=== PATIENT | female | born 1930 | race African-American/Black ===

== ENCOUNTER 2017-07-15 18:42 | Inpatient (IN) | payer MEDICARE, MEDICAID ==
[~2017-07-15] VITALS: Ht 165.1 cm; Wt 68.0 kg
[~2017-07-15 18:42] MED LIST: ACET-2178; ASPI-986; CHOL400T11; MEMA10TA2 PO; SIMV10TA2; TRAM50TA73
[2017-07-15 23:49] LABS: BASOPHILS % 0.3 % (0.0-2.0); EOSINOPHILS % 2.1 % (0.0-5.0); HEMATOCRIT. 32.9 % (36.0-48.0); HEMOGLOBIN. 11.1 g/dL (12.0-16.0); LYMPHOCYTES % 25.8 % (20.0-50.0); MEAN CORPUSCULAR HEMOGLOBIN 32.5 pg (28.0-32.0); MEAN CORPUSCULAR VOLUME 96.2 fL (81.0-99.0); MEAN PLATELET VOLUME 9.1 fl (7.4-10.4); MONOCYTES % 6.2 % (2.0-8.0); NEUTROPHILS % 65.6 % (40.0-76.0); PLATELET 222 x1000/uL (130-400); RED BLOOD CELL COUNT 3.41 mill/uL (4.2-5.4); RED CELL DISTRIBUTION WIDTH 13.4 % (11.6-14.6)
[2017-07-15 23:57] LABS: PROTHROMBIN TIME 10.8 sec (9.4-11.6)
[2017-07-16] VITALS (10 sets, daily range): BP systolic 105–181; BP diastolic 60–92
[2017-07-16 00:06] LABS: CARBON DIOXIDE 25 mEq/L (21-32); CHLORIDE 110 mEq/L (98-107); TROPONIN I 0.07 ng/mL (0.00-0.04)
[2017-07-16] MEDS ORDERED: ASPIRIN 325MG TABLET GT NR (00:15)
[2017-07-16] MEDS ORDERED: MAGN400C PO (03:38)
[2017-07-16] MEDS ORDERED: CYAN10009 PO (03:38)
[2017-07-16] MEDS ORDERED: ASCO-339 PO (03:38)
[2017-07-16] MEDS ORDERED: MEMA10TA2 PO (03:38)
[2017-07-16] MEDS ORDERED: ASPI-1158 PO (03:38)
[2017-07-16] MEDS ORDERED: ATOR10TA69 PO (03:38)
[2017-07-16] MEDS ORDERED: CHOL100044 PO (03:38)
[2017-07-16] MEDS ORDERED: GALA4SOL PO (03:38)
[2017-07-16] MEDS ORDERED: MELO-106 PO (03:38)
[2017-07-16] MEDS ORDERED: IPRA3AMP9 HHN (08:13)
[2017-07-16] MEDS ORDERED: CLON0.1T PO (08:13)
[2017-07-16] MEDS ORDERED: ONDA4TAB5 PO (08:13)
[2017-07-16] MEDS ORDERED: ASCO500C15 PO (08:13)
[2017-07-16] MEDS ORDERED: TUSSL PO (08:13)
[2017-07-16] MEDS ORDERED: ACET-2178 PO (08:13)
[2017-07-16] MEDS ORDERED: DOCU-138 PO (08:13)
[2017-07-16] MEDS ORDERED: MULTIVITAMIN WITH MINERALS PO (08:15)
[2017-07-16 08:46] LABS: BASOPHILS % 0.4 % (0.0-2.0); EOSINOPHILS % 2.7 % (0.0-5.0); HEMATOCRIT. 31.9 % (36.0-48.0); HEMOGLOBIN. 10.8 g/dL (12.0-16.0); LYMPHOCYTES % 30.9 % (20.0-50.0); MEAN CORPUSCULAR HEMOGLOBIN 32.7 pg (28.0-32.0); MEAN CORPUSCULAR VOLUME 96.3 fL (81.0-99.0); MEAN PLATELET VOLUME 9.3 fl (7.4-10.4); MONOCYTES % 6.8 % (2.0-8.0); NEUTROPHILS % 59.2 % (40.0-76.0); PLATELET 229 x1000/uL (130-400); RED BLOOD CELL COUNT 3.31 mill/uL (4.2-5.4); RED CELL DISTRIBUTION WIDTH 13.4 % (11.6-14.6)
[2017-07-16 08:57] LABS: CARBON DIOXIDE 26 mEq/L (21-32); CHLORIDE 110 mEq/L (98-107)
[2017-07-16] MEDS ORDERED: ENOXAPARIN 40MG/0.4ML SYR SUBCUT SCH (09:00)
[2017-07-16] MEDS ORDERED: AMLODIPINE 5MG TABLET PO NR (10:30)
[2017-07-16] MEDS ORDERED: CLONIDINE 0.1MG TABLET PO PRN (10:30)
[2017-07-16] MEDS ORDERED: IPRATROPIUM/ALBUTEROL 0.5-3(2.5)MG/3ML NEB HHN PRN (10:30)
[2017-07-16] MEDS ORDERED: ACETAMINOPHEN 325MG TABLET PO PRN (10:30)
[2017-07-16] MEDS ORDERED: GALANTAMINE HBR 8MG ER CAPSULE 24HR PO NR (10:30)
[2017-07-16] MEDS ORDERED: SODIUM CHLORIDE 0.9% 10ML VIAL ONE (10:48)
[2017-07-16] MEDS ORDERED: SIMETHICONE 40 MG/0.6 ML 30ML ONE (10:48)
[2017-07-16] MEDS ORDERED: CEFAZOLIN 1000MG PREMIX 50 ML IV ONE (11:15)
[2017-07-16] MEDS ORDERED: AMLODIPINE 5MG TABLET PEG NR (12:15)
[2017-07-16] MEDS ORDERED: ACETAMINOPHEN 325MG TABLET PEG PRN (14:30)
[2017-07-16] MEDS ORDERED: LEVOFLOXACIN 250MG PREMIX 50 ML IV NR (15:00)
[2017-07-16 15:35] LABS: CLARITY URINE CLEAR (CLEAR); COLOR URINE YELLOW (YELLOW); GLUCOSE URINE NEGATIVE (NEGATIVE); KETONES URINE NEGATIVE (NEGATIVE); LEUKOCYTE ESTERASE URINE 2+ (NEGATIVE); NITRITE URINE NEGATIVE (NEGATIVE); OCCULT BLOOD URINE TRACE (NEGATIVE); PROTEIN URINE 1+ (NEGATIVE); SPECIFIC GRAVITY URINE 1.016 (1.005-1.030)
[2017-07-16 16:23] LABS: CREATINE KINASE MB FRACTION 2.4 ng/mL (0.5-3.6); TROPONIN I 0.05 ng/mL (0.00-0.04)
[2017-07-16] MEDS: CLONIDINE 0.1MG TABLET PEG PRN (16:30)
[2017-07-16] MEDS ORDERED: MEMANTINE HCL 10MG TABLET PO SCH (17:00)
[2017-07-16] MEDS: MEMANTINE HCL 10MG TABLET PEG SCH (17:00)
[2017-07-16] MEDS: GALANTAMINE HBR 4 MG PEG SCH (17:00)
[2017-07-16] MEDS ORDERED: MIDAZOLAM HCL 5 MG/5 ML VIAL ONE (17:59)
[2017-07-16] MEDS ORDERED: MIDAZOLAM HCL 2 MG/2 ML VIAL IV PRN (18:15)
[2017-07-16] MEDS ORDERED: ATORVASTATIN CALCIUM 10MG TABLET PO SCH (21:00)
[2017-07-16] MEDS: PANTOPRAZOLE SODIUM 40 MG/VIAL IV SCH (21:08)
[2017-07-16] MEDS: ATORVASTATIN CALCIUM 10MG TABLET PEG SCH (21:08)
[2017-07-16] MEDS: SILVER SULFADIAZINE 1% CREAM 50GM TOP SCH (23:06)
[2017-07-17] VITALS (11 sets, daily range): BP systolic 92–174; BP diastolic 38–80
[2017-07-17 00:04] LABS: TROPONIN I 0.04 ng/mL (0.00-0.04)
[2017-07-17 00:05] LABS: CREATINE KINASE MB FRACTION 1.5 ng/mL (0.5-3.6)
[2017-07-17] MEDS: CLONIDINE 0.1MG TABLET PEG PRN (00:06)
[2017-07-17 06:45] LABS: CREATINE KINASE MB FRACTION 1.4 ng/mL (0.5-3.6); TROPONIN I 0.03 ng/mL (0.00-0.04)
[2017-07-17] MEDS: PANTOPRAZOLE SODIUM 40 MG/VIAL IV SCH ×2 (08:15→20:28)
[2017-07-17] MEDS: MULTIVITAMINS,THER W-MINERALS TABLET PEG SCH (08:15)
[2017-07-17] MEDS: GALANTAMINE HBR 4 MG PEG SCH ×2 (08:15→16:13)
[2017-07-17] MEDS: CYANOCOBALAMIN 1000MCG TABLET PEG SCH (08:15)
[2017-07-17] MEDS: DOCUSATE SODIUM SUGAR FREE 100MG/10ML UDC PEG SCH (08:15)
[2017-07-17] MEDS: CHOLECALCIFEROL (D3) 1000 UNIT TABLET PEG SCH (08:15)
[2017-07-17] MEDS: MEMANTINE HCL 10MG TABLET PEG SCH ×2 (08:15→16:13)
[2017-07-17] MEDS: AMLODIPINE 5MG TABLET PEG SCH (08:18)
[2017-07-17] MEDS ORDERED: CHOLECALCIFEROL (D3) 1000 UNIT TABLET PO SCH (09:00)
[2017-07-17] MEDS ORDERED: MULTIVITAMINS,THER W-MINERALS TABLET NG SCH (09:00)
[2017-07-17] MEDS ORDERED: AMLODIPINE 5MG TABLET PO SCH (09:00)
[2017-07-17] MEDS ORDERED: CYANOCOBALAMIN 1000MCG TABLET PO SCH (09:00)
[2017-07-17] MEDS ORDERED: GALANTAMINE HBR 8MG ER CAPSULE 24HR PO SCH (09:00)
[2017-07-17] MEDS ORDERED: DOCUSATE SODIUM 100MG CAPSULE PO SCH (09:00)
[2017-07-17] MEDS ORDERED: INFLUENZA VIRUS VACCINE 0.5ML SYR IM ONE (14:45)
[2017-07-17] MEDS: SILVER SULFADIAZINE 1% CREAM 50GM TOP SCH (16:45)
[2017-07-17] MEDS: ATORVASTATIN CALCIUM 10MG TABLET PEG SCH (20:28)
[2017-07-17] MEDS: ENOXAPARIN 40MG/0.4ML SYR SUBCUT SCH (22:48)
[2017-07-18] VITALS (12 sets, daily range): BP systolic 118–170; BP diastolic 51–86
[2017-07-18] MEDS: CLONIDINE 0.1MG TABLET PEG PRN (05:57)
[2017-07-18 06:14] LABS: BASOPHILS % 0.3 % (0.0-2.0); EOSINOPHILS % 2.5 % (0.0-5.0); HEMATOCRIT. 29.2 % (36.0-48.0); LYMPHOCYTES % 27.3 % (20.0-50.0); MEAN CORPUSCULAR HEMOGLOBIN 32.5 pg (28.0-32.0); MEAN CORPUSCULAR VOLUME 94.9 fL (81.0-99.0); MEAN PLATELET VOLUME 9.3 fl (7.4-10.4); MONOCYTES % 5.9 % (2.0-8.0); PLATELET 204 x1000/uL (130-400); RED BLOOD CELL COUNT 3.08 mill/uL (4.2-5.4); RED CELL DISTRIBUTION WIDTH 13.6 % (11.6-14.6)
[2017-07-18 06:58] LABS: CHLORIDE 107 mEq/L (98-107)
[2017-07-18 07:11] LABS: CARBON DIOXIDE 27 mEq/L (21-32)
[2017-07-18] MEDS: MULTIVITAMINS,THER W-MINERALS TABLET PEG SCH (08:21)
[2017-07-18] MEDS: CHOLECALCIFEROL (D3) 1000 UNIT TABLET PEG SCH (08:21)
[2017-07-18] MEDS: MEMANTINE HCL 10MG TABLET PEG SCH ×2 (08:21→16:37)
[2017-07-18] MEDS: CYANOCOBALAMIN 1000MCG TABLET PEG SCH (08:21)
[2017-07-18] MEDS: AMLODIPINE 5MG TABLET PEG SCH (08:22)
[2017-07-18] MEDS: GALANTAMINE HBR 4 MG PEG SCH ×2 (08:22→16:37)
[2017-07-18] MEDS: PANTOPRAZOLE SODIUM 40 MG/VIAL IV SCH ×2 (08:22→21:17)
[2017-07-18] MEDS: DOCUSATE SODIUM SUGAR FREE 100MG/10ML UDC PEG SCH (10:02)
[2017-07-18] MEDS: SILVER SULFADIAZINE 1% CREAM 50GM TOP SCH (10:03)
[2017-07-18] MEDS: LEVOFLOXACIN 250MG PREMIX 50 ML IV SCH (11:45)
[2017-07-18] MEDS: ATORVASTATIN CALCIUM 10MG TABLET PEG SCH (21:18)
[2017-07-18] MEDS: ENOXAPARIN 40MG/0.4ML SYR SUBCUT SCH (21:19)
[2017-07-19] VITALS (9 sets, daily range): BP systolic 120–158; BP diastolic 60–85
[2017-07-19] MEDS: MULTIVITAMINS,THER W-MINERALS TABLET PEG SCH (08:57)
[2017-07-19] MEDS: PANTOPRAZOLE SODIUM 40 MG/VIAL IV SCH (08:57)
[2017-07-19] MEDS: AMLODIPINE 5MG TABLET PEG SCH (08:58)
[2017-07-19] MEDS: DOCUSATE SODIUM SUGAR FREE 100MG/10ML UDC PEG SCH (08:58)
[2017-07-19] MEDS: GALANTAMINE HBR 4 MG PEG SCH (08:58)
[2017-07-19] MEDS: MEMANTINE HCL 10MG TABLET PEG SCH (08:58)
[2017-07-19] MEDS: CYANOCOBALAMIN 1000MCG TABLET PEG SCH (08:58)
[2017-07-19] MEDS: CHOLECALCIFEROL (D3) 1000 UNIT TABLET PEG SCH (09:04)
[2017-07-19] MEDS ORDERED: LOSARTAN POTASSIUM 25 MG TABLET GT SCH (09:15)
[2017-07-19] MEDS ORDERED: ASPIRIN 81MG TABLET GT SCH (09:15)
[2017-07-19] MEDS: SILVER SULFADIAZINE 1% CREAM 50GM TOP SCH (09:46)
[2017-07-19] MEDS: LEVOFLOXACIN 250MG PREMIX 50 ML IV SCH (11:02)
[2017-07-19] MEDS: CLONIDINE 0.1MG TABLET PEG PRN (11:02)
[2017-07-19] MEDS ORDERED: CLONIDINE 0.1MG TABLET PO NR (16:00)
[2017-07-19] MEDS ORDERED: ATORVASTATIN CALCIUM 10MG TABLET GT SCH (21:00)
[2017-07-20] MEDS ORDERED: ASPIRIN 81MG TABLET GT SCH (09:00)
== END 2017-07-19 17:30 | DRG 64 ==
LOC: ER 20:19 → 5EST 07-16 00:12 → EDBEDREQ 07-16 00:16 → EDBEDREQTM 07-16 00:16 → EDBEDREQSVC 07-16 00:16 → ENRESERV 07-16 00:24 → CANRESERV 07-16 00:24 → ENRESERV 07-16 01:54
PROVIDERS: ADMIT Internal Medicine Geriatric Medicine; ATTEND Internal Medicine Geriatric Medicine
PROC: 0DH63UZ Insertion of Feeding Device into Stomach, Percutaneous Approach (ICD-10-PCS; principal; 2017-07-16 18:00)
DX: I63.9 Cerebral infarction, unspecified (principal); L89.154 Pressure ulcer of sacral region, stage 4; E44.0 Moderate protein-calorie malnutrition; L89.610 Pressure ulcer of right heel, unstageable; I49.5 Sick sinus syndrome; R13.12 Dysphagia, oropharyngeal phase; N30.90 Cystitis, unspecified without hematuria; J44.9 Chronic obstructive pulmonary disease, unspecified; B96.89 Other specified bacterial agents as the cause of diseases classified elsewhere; D63.8 Anemia in other chronic diseases classified elsewhere; G30.9 Alzheimer's disease, unspecified; F02.80 Dementia in other diseases classified elsewhere, unspecified severity, without behavioral disturbance, psychotic disturbance, mood disturbance, and anxiety; R62.7 Adult failure to thrive; E78.00 Pure hypercholesterolemia, unspecified; I11.9 Hypertensive heart disease without heart failure; G89.29 Other chronic pain; M19.90 Unspecified osteoarthritis, unspecified site; M54.9 Dorsalgia, unspecified; Z98.49 Cataract extraction status, unspecified eye; Z91.81 History of falling; Z74.01 Bed confinement status; Z95.0 Presence of cardiac pacemaker; Z88.0 Allergy status to penicillin; Z88.8 Allergy status to other drugs, medicaments and biological substances; Z90.49 Acquired absence of other specified parts of digestive tract; Z79.899 Other long term (current) drug therapy; Z68.25 Body mass index [BMI] 25.0-25.9, adult; Z86.73 Personal history of transient ischemic attack (TIA), and cerebral infarction without residual deficits
CPT/HCPCS: 36415; 70450; 71010; 80048; 80053; 80185; 81001; 82550; 82553; 82962; 83880; 84134; 84443; 84484; 85025; 85610; 87077; 87086; 87186; 93005; 99291; A4216; A6261; C9113; J1650; J1956; J2250; J7050; A4315